=== PATIENT | female | born 1950 | race Caucasian/White ===

== ENCOUNTER → 2019-05-09 09:46 | Outpatient (BNVA) | payer MEDICARE, OTHER, SELFPAY | PROVIDERS: Family Provider Internal Medicine; PCP Internal Medicine; Visit Provider Psychiatry & Neurology Psychiatry | DX: F41.1 Generalized anxiety disorder (principal) | CPT/HCPCS: 99213 ==

== ENCOUNTER → 2019-06-06 15:00 | Outpatient (BNVA) | payer MEDICARE, OTHER, SELFPAY | PROVIDERS: Family Provider Internal Medicine; PCP Internal Medicine; Visit Provider Psychiatry & Neurology Psychiatry | DX: F32.9 Major depressive disorder, single episode, unspecified (principal); F41.1 Generalized anxiety disorder | CPT/HCPCS: 99213 ==

== ENCOUNTER → 2019-06-13 13:49 | Outpatient (BNVA) | payer MEDICARE, OTHER, SELFPAY | PROVIDERS: Family Provider Internal Medicine; PCP Internal Medicine; Visit Provider Social Worker | DX: F41.1 Generalized anxiety disorder (principal); F33.0 Major depressive disorder, recurrent, mild; F90.0 Attention-deficit hyperactivity disorder, predominantly inattentive type | CPT/HCPCS: 90834 ==

== ENCOUNTER → 2019-07-11 13:46 | Outpatient (BNVA) | payer MEDICARE, OTHER, SELFPAY | PROVIDERS: Family Provider Internal Medicine; PCP Internal Medicine; Visit Provider Social Worker | DX: F31.11 Bipolar disorder, current episode manic without psychotic features, mild (principal) | CPT/HCPCS: 90834 ==

== ENCOUNTER → 2019-08-15 08:28 | Outpatient (BNVA) | payer MEDICARE, OTHER, SELFPAY | PROVIDERS: Family Provider Internal Medicine; PCP Internal Medicine; Visit Provider Social Worker | DX: F41.1 Generalized anxiety disorder (principal); F32.9 Major depressive disorder, single episode, unspecified | CPT/HCPCS: 90834 ==

== ENCOUNTER → 2019-09-04 08:17 | Outpatient (BNVA) | payer MEDICARE, OTHER, SELFPAY | PROVIDERS: Family Provider Internal Medicine; PCP Internal Medicine; Visit Provider Psychiatry & Neurology Psychiatry | DX: F32.9 Major depressive disorder, single episode, unspecified (principal); F41.1 Generalized anxiety disorder | CPT/HCPCS: 99213 ==

== ENCOUNTER → 2019-09-10 08:19 | Outpatient (BNVA) | payer MEDICARE, OTHER, SELFPAY | PROVIDERS: Family Provider Internal Medicine; PCP Internal Medicine; Visit Provider Social Worker | DX: F32.9 Major depressive disorder, single episode, unspecified (principal); F41.1 Generalized anxiety disorder | CPT/HCPCS: 90834 ==

== ENCOUNTER → 2019-10-10 08:25 | Outpatient (BNVA) | payer MEDICARE, OTHER, SELFPAY | PROVIDERS: Family Provider Internal Medicine; PCP Internal Medicine; Visit Provider Social Worker | DX: F41.1 Generalized anxiety disorder (principal); F31.11 Bipolar disorder, current episode manic without psychotic features, mild; F90.2 Attention-deficit hyperactivity disorder, combined type | CPT/HCPCS: 90832 ==

== ENCOUNTER → 2019-12-04 09:37 | Outpatient (BNVA) | payer MEDICARE, OTHER, SELFPAY | PROVIDERS: Family Provider Internal Medicine; PCP Internal Medicine; Visit Provider Psychiatry & Neurology Psychiatry | DX: F32.9 Major depressive disorder, single episode, unspecified (principal); F41.1 Generalized anxiety disorder | CPT/HCPCS: 99213 ==

== ENCOUNTER → 2020-03-04 09:13 | Outpatient (BNVA) | payer MEDICARE, OTHER, SELFPAY | PROVIDERS: Family Provider Internal Medicine; PCP Internal Medicine; Visit Provider Psychiatry & Neurology Psychiatry | DX: F32.9 Major depressive disorder, single episode, unspecified (principal); F41.1 Generalized anxiety disorder; G47.33 Obstructive sleep apnea (adult) (pediatric) | CPT/HCPCS: 99213 ==

== ENCOUNTER → 2020-03-18 07:45 | Outpatient (BNVA) | payer MEDICARE, OTHER, SELFPAY | PROVIDERS: Family Provider Internal Medicine; PCP Internal Medicine; Visit Provider Psychiatry & Neurology Psychiatry | DX: F32.9 Major depressive disorder, single episode, unspecified (principal); F41.1 Generalized anxiety disorder | CPT/HCPCS: 99214 ==

== ENCOUNTER → 2020-04-08 07:26 | Outpatient (BNVA) | payer MEDICARE, OTHER, SELFPAY | PROVIDERS: Family Provider Internal Medicine; PCP Internal Medicine; Visit Provider Psychiatry & Neurology Psychiatry | DX: F41.1 Generalized anxiety disorder (principal); G47.33 Obstructive sleep apnea (adult) (pediatric); F32.9 Major depressive disorder, single episode, unspecified | CPT/HCPCS: 99213 ==

== ENCOUNTER 2020-04-23 16:51 | Emergency (ER) | payer MEDICARE, OTHER, SELFPAY ==
[2020-04-23] VITALS (8 sets, daily range): BP systolic 117–170; BP diastolic 61–78; PULSE 66–94; RESP 16–22; TEMP 36.4; O2SAT 93–98; BMI 34.0
--- NOTE | 2020-04-23 17:27 | XRR_ITS ---
PROCEDURE INFORMATION: Exam: XR Chest, 1 View Exam date and time: 04/23/2020 5:45 PM Age: 69 years old Clinical indication: Pain; Chest pressure; Additional info: Chest pain TECHNIQUE: Imaging protocol: XR of the chest Views: 1 view. Total images: 1 COMPARISON: CR Chest 1 [place] [id number] 11/18/2017 10:31 PM FINDINGS: Lungs: Unremarkable. No consolidation. Pleural space: Unremarkable. No pleural effusion. No pneumothorax. Heart/Mediastinum: Unremarkable. No cardiomegaly. Bones/joints: Unremarkable. XR/XR chest 1V portable [id number] IMPRESSION: No acute findings.
[2020-04-23] MEDS: nitroglycerin 0.4 mg sublingual Tablet SUBLINGUAL (17:45)
[2020-04-23] MEDS: aspirin 81 mg Chew Tablet 243 MG PO (17:45)
--- NOTE | 2020-04-23 17:50 | ED_ITS ---
Documented by User: Zuhair Ahumada MD 04/23/20 17:54 HPI - Chest Pain General: Chief Complaint: Chest Pain Stated Complaint: chest tightness, cough, sweating Time Seen by Provider: 04/23/20 17:25 History of Present Illness: HPI narrative: The patient is a 69-year-old female with past medical history myocardial infarction x2 not compliant with follow-up who comes to the ER complaining of midsternal chest pain while she was cleaning her daughter's house. The episode lasted about 90 seconds and it was midsternal. The pain was similar to her previous myocardial infarction however did resolve spontaneously. She comes to the ER for further evaluation. MD complaint: chest pain and chest heaviness Pertinent past history: coronary artery disease and prior OR Onset (ago): hour(s) (1) Timing of current episode: now resolved Onset: during exertion Pain location: substernal Pain radiation: none Severity: similar to previous episodes Quality: sharp and similar to prior OR Exacerbating factors: exertion [facility] ED PFSH: Medical History (Updated 04/24/20 @ 00:14 by Roxy Jean MD) ASHD (arteriosclerotic heart disease) Cardiomyopathy Diabetes Generalized anxiety disorder Hypertension Hypothyroid MDD (major depressive disorder) SANTIAGO (obstructive sleep apnea) Surgical History H/O hysterectomy with oophorectomy S/P cholecystectomy Family History Other Cancer Diabetes Hypertension Social History Smoking and tobacco status: never smoked Alcohol intake: never Course Vital Signs: Vital signs: Vital Signs Temperature 97.6 F 04/23/20 16:59 Pulse Rate 74 04/24/20 00:24 Respiratory Rate 17 04/24/20 00:24 Blood Pressure 140/87 04/24/20 00:24 Pulse Oximetry 94 04/24/20 00:24 MDM - Chest Pain Lab Data: Labs: Lab Results 04/23/20 04/23/20 04/23/20 Range/Units 17:53 17:53 17:53 WBC 7.1 (4.0-10.0) 10^3/ uL RBC 4.44 (4.1-5.3) 10^6/u L Hgb 13.1 (11.5-15.3) g/dL Hct 41.4 (37.0-47.0) % MCV 93.2 (81-99) fL MCH 29.5 (28.0-34.0) pg MCHC 31.6 (30.0-36.0) g/dL RDW 12.7 (12.1-15.1) % Plt Count 215 (130-400) 10^3/c mm MPV 9.7 (7.4-10.4) fL Neut % (Auto) 75.0 % Lymph % (Auto) 14.6 % [place] % (Auto) 7.5 % Eos % (Auto) 2.4 % Baso % (Auto) 0.1 % Neut # (Auto) 5.29 (1.8-7.7) 10^3/u L Lymph # (Auto) 1.0 (0.8-4.8) 10^3/u L [place] # (Auto) 0.5 (0.2-0.9) 10^3/u L Eos # (Auto) 0.2 (0.0-0.8) 10^3/u L Baso # (Auto) 0.0 (0.0-0.1) 10^3/u L Nucleated RBC % (a uto) 0 % Nucleated RBCs # 0.0 /100WBC D-Dimer 1.51 H (0-0.59) ug/mIFE U Sodium Cancelled Potassium Cancelled Chloride Cancelled Carbon Dioxide Cancelled Anion Gap Cancelled BUN Cancelled Creatinine Cancelled GFR Calculation Cancelled Glucose Cancelled Calculated Osmolal ity Cancelled Calcium Cancelled Total Bilirubin Cancelled AST Cancelled ALT Cancelled Alkaline Phosphata se Cancelled Troponin T Baselin e (0-10) ng/L Troponin T 120 [place] (0-10) ng/L Delta Troponin T (0-10) ABS# Troponin T Hi Sens 6Hr (0-10) ng/L Troponin T Hi Sens 6Hr Delta (0-12) ng/L NT-Pro-B Natriuret Pep Cancelled Total Protein Cancelled Albumin Cancelled Globulin Cancelled Urine Color (Yellow) Urine Appearance (CLEAR) Urine pH (5-7) Ur Specific Gravit y (1.005-1.030) Urine Protein (Negative) Urine Glucose (UA) (Normal) Urine Ketones (Negative) Urine Blood (Negative) Urine Nitrate (Negative) Urine Bilirubin (Negative) Urine Urobilinogen (Negative) mg/dL Ur Leukocyte Ashli ase (Negative) Urine RBC (0-2) /hpf Urine WBC (0-5) /hpf Ur Squamous Epith Cells (0-5) /hpf Amorphous Sediment Urine Bacteria (NONE) /hpf 04/23/20 04/23/20 04/23/20 Range/Units 17:53 18:25 18:31 WBC (4.0-10.0) 10^3/ uL RBC (4.1-5.3) 10^6/u L Hgb (11.5-15.3) g/dL Hct (37.0-47.0) % MCV (81-99) fL MCH (28.0-34.0) pg MCHC (30.0-36.0) g/dL RDW (12.1-15.1) % Plt Count (130-400) 10^3/c mm MPV (7.4-10.4) fL Neut % (Auto) % Lymph % (Auto) % [place] % (Auto) % Eos % (Auto) % Baso % (Auto) % Neut # (Auto) (1.8-7.7) 10^3/u L Lymph # (Auto) (0.8-4.8) 10^3/u L [place] # (Auto) (0.2-0.9) 10^3/u L Eos # (Auto) (0.0-0.8) 10^3/u L Baso # (Auto) (0.0-0.1) 10^3/u L Nucleated RBC % (a uto) % Nucleated RBCs # /100WBC D-Dimer (0-0.59) ug/mIFE U Sodium Potassium Chloride Carbon Dioxide Anion Gap BUN Creatinine GFR Calculation Glucose Calculated Osmolal ity Calcium Total Bilirubin AST ALT Alkaline Phosphata se Troponin T Baselin e 11 H (0-10) ng/L Troponin T 120 [place] 10.46 H (0-10) ng/L Delta Troponin T -0.54 L (0-10) ABS# Troponin T Hi Sens 6Hr (0-10) ng/L Troponin T Hi Sens 6Hr Delta (0-12) ng/L NT-Pro-B Natriuret Pep Total Protein Albumin Globulin Urine Color Yellow (Yellow) Urine Appearance Clear (CLEAR) Urine pH 5 (5-7) Ur Specific Gravit y 1.020 (1.005-1.030) Urine Protein Neg (Negative) Urine Glucose (UA) Norm (Normal) Urine Ketones Negative (Negative) Urine Blood Neg (Negative) Urine Nitrate Positive H (Negative) Urine Bilirubin Neg (Negative) Urine Urobilinogen Norm (Negative) mg/dL Ur Leukocyte Ashli ase 2+ H (Negative) Urine RBC 0-4 H (0-2) /hpf Urine WBC 25-40 H (0-5) /hpf Ur Squamous Epith Cells 0-4 H (0-5) /hpf Amorphous Sediment Not Reportable Urine Bacteria 3+ H (NONE) /hpf 04/23/20 04/23/20 Range/Units 18:31 23:42 WBC (4.0-10.0) 10^3/ uL RBC (4.1-5.3) 10^6/u L Hgb (11.5-15.3) g/dL Hct (37.0-47.0) % MCV (81-99) fL MCH (28.0-34.0) pg MCHC (30.0-36.0) g/dL RDW (12.1-15.1) % Plt Count (130-400) 10^3/c mm MPV (7.4-10.4) fL Neut % (Auto) % Lymph % (Auto) % [place] % (Auto) % Eos % (Auto) % Baso % (Auto) % Neut # (Auto) (1.8-7.7) 10^3/u L Lymph # (Auto) (0.8-4.8) 10^3/u L [place] # (Auto) (0.2-0.9) 10^3/u L Eos # (Auto) (0.0-0.8) 10^3/u L Baso # (Auto) (0.0-0.1) 10^3/u L Nucleated RBC % (a uto) % Nucleated RBCs # /100WBC D-Dimer (0-0.59) ug/mIFE U Sodium 140 Potassium 4.1 Chloride 105 Carbon Dioxide 26 Anion Gap 13.1 BUN 19 Creatinine 0.7 GFR Calculation 83.0 L Glucose 152 H Calculated Osmolal ity 295 Calcium 9.3 Total Bilirubin 0.2 AST 23 ALT 22 Alkaline Phosphata se 109 H Troponin T Baselin e (0-10) ng/L Troponin T 120 [place] (0-10) ng/L Delta Troponin T (0-10) ABS# Troponin T Hi Sens 6Hr 12.96 H (0-10) ng/L Troponin T Hi Sens 6Hr Delta 1.96 (0-12) ng/L NT-Pro-B Natriuret Pep 413 H Total Protein 6.6 Albumin 4.0 Globulin 2.6 Urine Color (Yellow) Urine Appearance (CLEAR) Urine pH (5-7) Ur Specific Gravit y (1.005-1.030) Urine Protein (Negative) Urine Glucose (UA) (Normal) Urine Ketones (Negative) Urine Blood (Negative) Urine Nitrate (Negative) Urine Bilirubin (Negative) Urine Urobilinogen (Negative) mg/dL Ur Leukocyte Ashli ase (Negative) Urine RBC (0-2) /hpf Urine WBC (0-5) /hpf Ur Squamous Epith Cells (0-5) /hpf Amorphous Sediment Urine Bacteria (NONE) /hpf Discharge Plan Discharge Patient Disposition: Home Clinical Impression: Chest pain Qualifiers: Chest pain type: unspecified Qualified Code(s): R07.9 - Chest pain, unspecified Condition: Stable Prescriptions: No Action mecobalamin (vitamin B12) 1,000 mcg tablet,chewable 1,000 mcg PO DAILY RF: 0 garlic 1,000 mg capsule 1,000 mg PO DAILY RF: 0 ferrous gluconate [Ferate] 240 mg (27 mg iron) tablet 240 mg PO DAILY RF: 0 losartan 25 mg tablet 25 mg PO DAILY 90 Days Qty: 90 RF: 3 sertraline [Zoloft] 100 mg tablet 200 mg PO DAILY Qty: 180 RF: 1 trazodone 50 mg tablet 75 mg PO DAILY Qty: 90 RF: 5 buspirone 10 mg tablet 20 mg PO BID Qty: 360 RF: 1 Healthy Eyes Lutein-Zeaxanthin 60 mg-13.5 mg- 15 mg-2 mg-6 mg capsule 1 cap PO QAM RF: 0 cholecalciferol (vitamin D3) 50 mcg (2,000 unit) tablet 2,000 unit PO DAILY RF: 0 levothyroxine 50 mcg capsule 50 mcg PO DAILY RF: 0 metformin 500 mg tablet 500 mg PO DAILY RF: 0 omega-3 fatty acids [Fish Oil Concentrate] 1,000 mg capsule 1,000 mg PO DAILY RF: 0 atorvastatin 40 mg tablet 40 mg PO DAILY RF: 0 aspirin [Aspir-81] 81 mg tablet,delayed release (DR/EC) 81 mg PO DAILY RF: 0 Farxiga 10 mg tablet 10 mg PO DAILY Qty: 90 RF: 0 Discharge Orders: Discharge ED (Routine); Ordered 04/24/20 Ordered By: Roxy Jean Referrals: Andrey Soto DO [Primary Care Provider] - Discharge Diet: Advance as tolerated Discharge Activity: Resume usual activity Patient Instructions: Chest Pain (ED) Coding Level of Care Code ED Professional Athlete for Chg Fwd Exam Comprehensive Documented by User: Roxy Jean MD 04/24/20 00:26 HPI - Chest Pain General: Chief Complaint: Chest Pain Stated Complaint: chest tightness, cough, sweating Time Seen by Provider: 04/23/20 17:25 History of Present Illness: Associated symptoms: Deny abdominal pain, dyspnea, fever(s), nausea or vomiting Review of Systems Const: Denies: fever(s), chills, body aches or change in appetite Eyes: Denies: blurry vision or eye discomfort ENMT: Denies: throat pain or dental pain Card: Denies: chest pain Resp: Denies: dyspnea GI: Denies: abdominal pain, nausea, vomiting or diarrhea : Denies: dysuria Musc: Denies: neck pain or back pain Skin/Breast: Denies: rash Neuro: Denies: headache(s) Psych: Denies: depression Jerman/Lymph: Denies: easy bruising All/Imm: Denies: urticaria PFSH ED PFSH: Medical History (Updated 04/24/20 @ 00:14 by Roxy Jean MD) ASHD (arteriosclerotic heart disease) Cardiomyopathy Diabetes Generalized anxiety disorder Hypertension Hypothyroid MDD (major depressive disorder) SANTIAGO (obstructive sleep apnea) Surgical History H/O hysterectomy with oophorectomy S/P cholecystectomy Family History Other Cancer Diabetes Hypertension Social History Smoking and tobacco status: never smoked Alcohol intake: never Physical Exam Const: COMMON NORMALS: no acute distress, patient oriented x3 and healthy appe aring HENMT: COMMON NORMALS: normocephalic and atraumatic HEAD & SCALP: normocephalic and atraumatic Eye: COMMON NORMALS: Equal, round and reactive pupils present and EOMs intact bilaterally PUPIL: Yes Equal, round and reactive pupils present Neck/C-Spine: COMMON NORMALS: full ROM and supple Chest: COMMONS NORMALS: normal inspection of the chest and normal palpation of entire chest wall Resp: COMMON NORMALS: normal respiratory effort, No retractions, No use of accessory muscles and clear to auscultation bilaterally AUSCULTATION: clear to auscultation bilaterally Cardio: COMMON NORMALS: regular rate, regular rhythm and No murmurs present (Cardio) RATE: regular rate RHYTHM: regular rhythm GI: COMMON NORMALS: Normal to inspection, nondistended, normoactive bowel sounds present, Soft to palpation, non-tender and no masses PALPATION: Yes Soft to palpation Extremity: COMMON NORMALS: normal to inspection and full ROM Neuro: COMMON NORMALS: patient oriented x3, moves all extremities and no focal motor deficits Psych: COMMON NORMALS: mental status grossly normal, Normal thought process present and cooperative THOUGHT PROCESS: Normal thought process present Skin: COMMON NORMALS: no rashes or lesions noted and no wounds GENERAL SKIN EXAM: no rashes or lesions noted Course Vital Signs: Vital signs: Vital Signs Temperature 97.6 F 04/23/20 16:59 Pulse Rate 74 04/24/20 00:24 Respiratory Rate 17 04/24/20 00:24 Blood Pressure 140/87 04/24/20 00:24 Pulse Oximetry 94 04/24/20 00:24 MDM - Chest Pain MDM Narrative: Medical decision making narrative: Irina presents here with chest pain. Patient's 2-hour and 6-hour troponin are negative. Patient is well-appearing here and states she feels improved. She is stable for discharge and is to follow-up with PCP and return if worsening. She understands agrees to plan. Lab Data: Labs: Lab Results 04/23/20 04/23/20 04/23/20 Range/Units 17:53 17:53 17:53 WBC 7.1 (4.0-10.0) 10^3/ uL RBC 4.44 (4.1-5.3) 10^6/u L Hgb 13.1 (11.5-15.3) g/dL Hct 41.4 (37.0-47.0) % MCV 93.2 (81-99) fL MCH 29.5 (28.0-34.0) pg MCHC 31.6 (30.0-36.0) g/dL RDW 12.7 (12.1-15.1) % Plt Count 215 (130-400) 10^3/c mm MPV 9.7 (7.4-10.4) fL Neut % (Auto) 75.0 % Lymph % (Auto) 14.6 % [place] % (Auto) 7.5 % Eos % (Auto) 2.4 % Baso % (Auto) 0.1 % Neut # (Auto) 5.29 (1.8-7.7) 10^3/u L Lymph # (Auto) 1.0 (0.8-4.8) 10^3/u L [place] # (Auto) 0.5 (0.2-0.9) 10^3/u L Eos # (Auto) 0.2 (0.0-0.8) 10^3/u L Baso # (Auto) 0.0 (0.0-0.1) 10^3/u L Nucleated RBC % (a uto) 0 % Nucleated RBCs # 0.0 /100WBC D-Dimer 1.51 H (0-0.59) ug/mIFE U Sodium Cancelled Potassium Cancelled Chloride Cancelled Carbon Dioxide Cancelled Anion Gap Cancelled BUN Cancelled Creatinine Cancelled GFR Calculation Cancelled Glucose Cancelled Calculated Osmolal ity Cancelled Calcium Cancelled Total Bilirubin Cancelled AST Cancelled ALT Cancelled Alkaline Phosphata se Cancelled Troponin T Baselin e (0-10) ng/L Troponin T 120 [place] (0-10) ng/L Delta Troponin T (0-10) ABS# Troponin T Hi Sens 6Hr (0-10) ng/L Troponin T Hi Sens 6Hr Delta (0-12) ng/L NT-Pro-B Natriuret Pep Cancelled Total Protein Cancelled Albumin Cancelled Globulin Cancelled Urine Color (Yellow) Urine Appearance (CLEAR) Urine pH (5-7) Ur Specific Gravit y (1.005-1.030) Urine Protein (Negative) Urine Glucose (UA) (Normal) Urine Ketones (Negative) Urine Blood (Negative) Urine Nitrate (Negative) Urine Bilirubin (Negative) Urine Urobilinogen (Negative) mg/dL Ur Leukocyte Ashli ase (Negative) Urine RBC (0-2) /hpf Urine WBC (0-5) /hpf Ur Squamous Epith Cells (0-5) /hpf Amorphous Sediment Urine Bacteria (NONE) /hpf 04/23/20 04/23/20 04/23/20 Range/Units 17:53 18:25 18:31 WBC (4.0-10.0) 10^3/ uL RBC (4.1-5.3) 10^6/u L Hgb (11.5-15.3) g/dL Hct (37.0-47.0) % MCV (81-99) fL MCH (28.0-34.0) pg MCHC (30.0-36.0) g/dL RDW (12.1-15.1) % Plt Count (130-400) 10^3/c mm MPV (7.4-10.4) fL Neut % (Auto) % Lymph % (Auto) % [place] % (Auto) % Eos % (Auto) % Baso % (Auto) % Neut # (Auto) (1.8-7.7) 10^3/u L Lymph # (Auto) (0.8-4.8) 10^3/u L [place] # (Auto) (0.2-0.9) 10^3/u L Eos # (Auto) (0.0-0.8) 10^3/u L Baso # (Auto) (0.0-0.1) 10^3/u L Nucleated RBC % (a uto) % Nucleated RBCs # /100WBC D-Dimer (0-0.59) ug/mIFE U Sodium Potassium Chloride Carbon Dioxide Anion Gap BUN Creatinine GFR Calculation Glucose Calculated Osmolal ity Calcium Total Bilirubin AST ALT Alkaline Phosphata se Troponin T Baselin e 11 H (0-10) ng/L Troponin T 120 [place] 10.46 H (0-10) ng/L Delta Troponin T -0.54 L (0-10) ABS# Troponin T Hi Sens 6Hr (0-10) ng/L Troponin T Hi Sens 6Hr Delta (0-12) ng/L NT-Pro-B Natriuret Pep Total Protein Albumin Globulin Urine Color Yellow (Yellow) Urine Appearance Clear (CLEAR) Urine pH 5 (5-7) Ur Specific Gravit y 1.020 (1.005-1.030) Urine Protein Neg (Negative) Urine Glucose (UA) Norm (Normal) Urine Ketones Negative (Negative) Urine Blood Neg (Negative) Urine Nitrate Positive H (Negative) Urine Bilirubin Neg (Negative) Urine Urobilinogen Norm (Negative) mg/dL Ur Leukocyte Ashli ase 2+ H (Negative) Urine RBC 0-4 H (0-2) /hpf Urine WBC 25-40 H (0-5) /hpf Ur Squamous Epith Cells 0-4 H (0-5) /hpf Amorphous Sediment Not Reportable Urine Bacteria 3+ H (NONE) /hpf 04/23/20 04/23/20 Range/Units 18:31 23:42 WBC (4.0-10.0) 10^3/ uL RBC (4.1-5.3) 10^6/u L Hgb (11.5-15.3) g/dL Hct (37.0-47.0) % MCV (81-99) fL MCH (28.0-34.0) pg MCHC (30.0-36.0) g/dL RDW (12.1-15.1) % Plt Count (130-400) 10^3/c mm MPV (7.4-10.4) fL Neut % (Auto) % Lymph % (Auto) % [place] % (Auto) % Eos % (Auto) % Baso % (Auto) % Neut # (Auto) (1.8-7.7) 10^3/u L Lymph # (Auto) (0.8-4.8) 10^3/u L [place] # (Auto) (0.2-0.9) 10^3/u L Eos # (Auto) (0.0-0.8) 10^3/u L Baso # (Auto) (0.0-0.1) 10^3/u L Nucleated RBC % (a uto) % Nucleated RBCs # /100WBC D-Dimer (0-0.59) ug/mIFE U Sodium 140 Potassium 4.1 Chloride 105 Carbon Dioxide 26 Anion Gap 13.1 BUN 19 Creatinine 0.7 GFR Calculation 83.0 L Glucose 152 H Calculated Osmolal ity 295 Calcium 9.3 Total Bilirubin 0.2 AST 23 ALT 22 Alkaline Phosphata se 109 H Troponin T Baselin e (0-10) ng/L Troponin T 120 [place] (0-10) ng/L Delta Troponin T (0-10) ABS# Troponin T Hi Sens 6Hr 12.96 H (0-10) ng/L Troponin T Hi Sens 6Hr Delta 1.96 (0-12) ng/L NT-Pro-B Natriuret Pep 413 H Total Protein 6.6 Albumin 4.0 Globulin 2.6 Urine Color (Yellow) Urine Appearance (CLEAR) Urine pH (5-7) Ur Specific Gravit y (1.005-1.030) Urine Protein (Negative) Urine Glucose (UA) (Normal) Urine Ketones (Negative) Urine Blood (Negative) Urine Nitrate (Negative) Urine Bilirubin (Negative) Urine Urobilinogen (Negative) mg/dL Ur Leukocyte Ashli ase (Negative) Urine RBC (0-2) /hpf Urine WBC (0-5) /hpf Ur Squamous Epith Cells (0-5) /hpf Amorphous Sediment Urine Bacteria (NONE) /hpf Discharge Plan Discharge Patient Disposition: Home Clinical Impression: Chest pain Qualifiers: Chest pain type: unspecified Qualified Code(s): R07.9 - Chest pain, unspecified Condition: Stable Prescriptions: No Action mecobalamin (vitamin B12) 1,000 mcg tablet,chewable 1,000 mcg PO DAILY RF: 0 garlic 1,000 mg capsule 1,000 mg PO DAILY RF: 0 ferrous gluconate [Ferate] 240 mg (27 mg iron) tablet 240 mg PO DAILY RF: 0 losartan 25 mg tablet 25 mg PO DAILY 90 Days Qty: 90 RF: 3 sertraline [Zoloft] 100 mg tablet 200 mg PO DAILY Qty: 180 RF: 1 trazodone 50 mg tablet 75 mg PO DAILY Qty: 90 RF: 5 buspirone 10 mg tablet 20 mg PO BID Qty: 360 RF: 1 Healthy Eyes Lutein-Zeaxanthin 60 mg-13.5 mg- 15 mg-2 mg-6 mg capsule 1 cap PO QAM RF: 0 cholecalciferol (vitamin D3) 50 mcg (2,000 unit) tablet 2,000 unit PO DAILY RF: 0 levothyroxine 50 mcg capsule 50 mcg PO DAILY RF: 0 metformin 500 mg tablet 500 mg PO DAILY RF: 0 omega-3 fatty acids [Fish Oil Concentrate] 1,000 mg capsule 1,000 mg PO DAILY RF: 0 atorvastatin 40 mg tablet 40 mg PO DAILY RF: 0 aspirin [Aspir-81] 81 mg tablet,delayed release (DR/EC) 81 mg PO DAILY RF: 0 Farxiga 10 mg tablet 10 mg PO DAILY Qty: 90 RF: 0 Discharge Orders: Discharge ED (Routine); Ordered 04/24/20 Ordered By: Roxy Jean Referrals: Andrey Soto DO [Primary Care Provider] - Discharge Diet: Advance as tolerated Discharge Activity: Resume usual activity Patient Instructions: Chest Pain (ED) Coding Level of Care Code ED Professional Athlete for Yarelisg Fwd Exam Comprehensive
[2020-04-23 18:01] LABS: Basophils % 0.1 %; Eosinophils # 0.2 10^3/uL (0.0-0.8); Eosinophils % 2.4 %; Hematocrit 41.4 % (37.0-47.0); Hemoglobin 13.1 g/dL (11.5-15.3); Lymphocytes % 14.6 %; Mean Corpuscular HGB Conc 31.6 g/dL (30.0-36.0); Mean Corpuscular Hemoglobin 29.5 pg (28.0-34.0); Mean Corpuscular Volume 93.2 fL (81-99); Mean Platelet Volume 9.7 fL (7.4-10.4); Monocytes # 0.5 10^3/uL (0.2-0.9); Monocytes % 7.5 %; Neutrophils # 5.29 10^3/uL (1.8-7.7); Nucleated Red Blood Cells % 0 %; Platelet Count 215 10^3/cmm (130-400); Red Blood Count 4.44 10^6/uL (4.1-5.3); Red Cell Distribution Width 12.7 % (12.1-15.1); White Blood Count 7.1 10^3/uL (4.0-10.0)
[2020-04-23 18:21] LABS: Troponin(5th) Baseline 11 ng/L (0-10)
[2020-04-23 18:36] LABS: D Dimer 1.51 ug/mIFEU (0-0.59)
--- NOTE | 2020-04-23 18:43 | CTR_ITS ---
PROCEDURE INFORMATION: Exam: CT Angiography Chest With Contrast Exam date and time: 04/23/2020 7:15 PM Age: 69 years old Clinical indication: Sternal or substernal pain; Patient HX: C/O mid sternal cp w elev d-dimer; Additional info: Chest pain, elevated d dimer TECHNIQUE: Imaging protocol: Computed tomographic angiography of the chest with intravenous contrast. 3D rendering (Not supervised by radiologist): MIP and/or 3D reconstructed images were created by the technologist. Total images: 755 Radiation optimization: All CT scans at this facility use at least one of these dose optimization techniques: automated exposure control; mA and/or kV adjustment per patient size (includes targeted exams where dose is matched to clinical indication); or iterative reconstruction. Contrast material: OMNI 350; Contrast volume: 65 ml; Contrast route: INTRAVENOUS (IV); COMPARISON: CR XR chest 1V portable [id number] 04/23/2020 5:28 PM RADIATION DOSE METRICS: Total DLP (mGy-cm): 489.22 FINDINGS: Pulmonary arteries: No visible evidence of pulmonary embolism/pulmonary arterial thrombus. Aorta: The thoracic aorta is nonaneurysmal. No visible intimal flap or dissection. Mild arterial sclerotic disease. Lungs: Very minimal discoid atelectasis right lower lobe and anterior segment left lower lobe. No other evidence of active interstitial or alveolar airspace disease. Rare calcified granuloma of antecedent disease. Pleural space: Unremarkable. No pneumothorax. No pleural effusion. Heart: Unremarkable. No cardiomegaly. No pericardial effusion. Lymph nodes: Marginally prominent mediastinal and hilar lymph nodes. Prominent pretracheal lymph node measures 13 mm in the short axis. Calcified hilar complexes of antecedent granulomatous disease. Gallbladder and bile ducts: Status post cholecystectomy. Bones/joints: Mild scoliotic curvature of the spine. Degenerative disease and degenerative disc disease of the spine. Osteopenia. Soft tissues: Obesity. CT/CT angio chest PE protcl [id number] IMPRESSION: 1. No visible evidence of pulmonary embolism/pulmonary arterial thrombus. 2. Very minimal discoid atelectasis. 3. Antecedent granulomatous disease. 4. Marginally prominent mediastinal and hilar lymph nodes. Radiation Dose CTDIVOL = (mGy): DLP = 489.22 (mGy-cm)
[2020-04-23 18:55] LABS: Troponin 5 2HR 10.46 ng/L (0-10)
[2020-04-23 19:03] LABS: Alanine Aminotransferase 22 U/L (0-33); Alkaline Phosphatase 109 IU/L (35-105); Anion Gap 13.1 (5-19); Aspartate Amino Transferase 23 U/L (0-32); Blood Urea Nitrogen 19 mg/dL (8-23); Calcium 9.3 mg/dL (8.5-10.5); Carbon Dioxide 26 mmol/L (22-29); Chloride 105 mmol/L (98-107); Globulin 2.6 g/dL (1.3-4.6); Glucose 152 mg/dL (65-115); NT Pro B Type Natriuretic Pept 413 pg/mL (0-125); Osmolality Calculated 295 mOsm/kg (285-295); Potassium 4.1 mmol/L (3.5-5.1); Sodium 140 mmol/L (136-145); Total Bilirubin 0.2 mg/dL (0.15-1.2); Total Protein 6.6 g/dL (6.6-8.7)
[2020-04-23 19:04] LABS: Add Urine Microscopic? YES; Bilirubin Urine Neg (Negative); Blood Urine Neg (Negative); Glucose Urine UA Norm (Normal); Ketones Urine Negative (Negative); Leukocyte Esterase Urine 2+ (Negative); Nitrate Urine Positive (Negative); Protein Urine Neg (Negative); Urine Appearance Clear (CLEAR); Urine Color Yellow (Yellow); Urobilinogen Urine Norm (Negative); pH Urine 5 (5-7)
[2020-04-23 19:06] LABS: Add Urine Culture? Yes; Bacteria Urine 3+ /hpf; RBC Urine 0-4 /hpf (0-2); Squamous Epithelial Cell Urine 0-4 /hpf (0-5); WBC Urine 25-40 /hpf (0-5)
[2020-04-23 19:11] LABS: Troponin 5 2HR Delta -0.54 ABS# (0-10)
--- NOTE | 2020-04-23 19:27 | ECG_ITS ---
[facility] Test Date: 2020-04-23 Pat Name: Irina Moscoso Department: Room: Gender: Female Bean Sorter: : 1950 Requested By: Zuhair Ahumada Order Number: [id number] Thomas MD: Shi Duncan M.D. Measurements Intervals [place] Rate: 75 P: 31 MI: 136 QRS: 21 QRSD: 106 T: 75 QT: 400 QTc: 448 Interpretive Statements SINUS RHYTHM POSSIBLE RIGHT VENTRICULAR CONDUCTION DELAY [RSR (QR) IN V1/V2] ANTEROLATERAL MYOCARDIAL INFARCTION , OF INDETERMINATE AGE [40+ ms Q WAVE IN I/aVL/V3-V6] Compared to ECG 12/18/2017 10:14:05 Sinus bradycardia no longer present Myocardial infarct finding still present Electronically Signed On 04-26-2020 10:03:34 PROJECTOR BOOTH OPERATOR by Shi Duncan M.D. [id number]
--- NOTE | 2020-04-23 19:27 | PC.NURSE ---
EKG done at 1927 and shown to ER doctor
[2020-04-23] MEDS: iohexol 350 mg/mL 100 mL Btl 65 ML IV (19:33)
[2020-04-23] MEDS: nitrofurantoin SR (BID) 100 mg Capsule PO (20:26)
--- NOTE | 2020-04-23 23:27 | ECG_ITS ---
[facility] Test Date: 2020-04-23 Pat Name: Irina Moscoso Department: Room: Gender: Female Coin Machine Supervisor: : 1950 Requested By: Zuhair Ahumada Order Number: [id number] Thomas MD: Shi Duncan M.D. Measurements Intervals [place] Rate: 73 P: 31 AK: 143 QRS: 17 QRSD: 109 T: 72 QT: 426 QTc: 472 Interpretive Statements SINUS RHYTHM POSSIBLE RIGHT VENTRICULAR CONDUCTION DELAY [RSR (QR) IN V1/V2] ANTEROLATERAL MYOCARDIAL INFARCTION , PROBABLY OLD [40+ ms Q WAVE IN I/aVL/V3-V6] Compared to ECG 04/23/2020 19:24:19 No significant changes Electronically Signed On 04-26-2020 10:01:56 BOARD DESIGN ENGINEER by Shi Duncan M.D. [id number]
--- NOTE | 2020-04-23 23:54 | PC.NURSE ---
EKG done at 2343 and shown to ER doctor
[2020-04-24 00:10] LABS: Troponin 5 6HR 12.96 ng/L (0-10); Troponin 5 6HR Delta 1.96 ng/L (0-12)
[2020-04-24 00:24] VITALS: BP 140/87; PULSE 74; RESP 17; O2SAT 94
--- NOTE | 2020-04-27 10:32 | DCPLANNER ---
manager discovery had message to schedule a follow up appointment for patient with [facility], cardiology. manager discovery called [facility], spoke with Angelica, a follow up appointment is scheduled for Monday, April 27, 2020 at 3:[address] Toth. manager discovery called patient and gave patient the appointment information. Patient stated that she would attend the appointment.
--- NOTE | 2020-05-20 15:08 | DCPLANNER ---
Patient had a follow up appointment scheduled for 04.27.20 with heart care - patient did attend appointment.
== END 2020-04-24 00:30 | disposition home or self-care (01) ==
PROVIDERS: Family Medicine; Emergency Provider Emergency Medicine; PCP Internal Medicine
DX: R07.9 Chest pain, unspecified (principal); Z79.82 Long term (current) use of aspirin; Z79.84 Long term (current) use of oral hypoglycemic drugs; E11.9 Type 2 diabetes mellitus without complications
CPT/HCPCS: 12345; 71045; 71275; 80053; 81001; 83880; 84484; 85025; 85378; 87077; 87086; 87186; 93005; 99283; 99284; 99291; Q9967

== ENCOUNTER → 2020-05-06 07:54 | Outpatient (BNVA) | payer MEDICARE, OTHER, SELFPAY | PROVIDERS: PCP Internal Medicine; Visit Provider Psychiatry & Neurology Psychiatry | DX: F32.9 Major depressive disorder, single episode, unspecified (principal); F41.1 Generalized anxiety disorder | CPT/HCPCS: 99214 ==

== ENCOUNTER → 2020-06-05 07:26 | Outpatient (BNVA) | payer MEDICARE, OTHER, SELFPAY | PROVIDERS: PCP Internal Medicine; Visit Provider Psychiatry & Neurology Psychiatry | DX: F32.9 Major depressive disorder, single episode, unspecified (principal); F41.1 Generalized anxiety disorder; F33.42 Major depressive disorder, recurrent, in full remission; G47.33 Obstructive sleep apnea (adult) (pediatric); G47.00 Insomnia, unspecified | CPT/HCPCS: 99214 ==

== ENCOUNTER 2020-06-08 11:54 | Outpatient (CLI) | payer MEDICARE, OTHER, SELFPAY ==
--- NOTE | 2020-06-08 11:56 | MM_ITS ---
WS: [id number] BILATERAL DIGITAL SCREENING MAMMOGRAPHY WITH CAD CLINICAL INFORMATION: SCREENING HISTORY: Screening mammogram. No current complaints. COMPARISON: TECHNIQUE: Bilateral CC and MLO views. FINDINGS: Scattered fibroglandular densities bilaterally. Slightly spiculated asymmetric density mid depth righ t breast best seen on the cc view. Recommend spot compression views and ultrasound if persistent. Punctate and vascular calcifications. Left breast is unremarkable. MM/[id number] IMPRESSION: BI-RADS: 0-Incomplete: Need additional imaging evaluation FOLLOW UP: Need Additional Imaging Recommend return to annual screening mammography.
== END 2020-06-08 11:55 | disposition home or self-care (01) ==
LOC: RADSHAW 11:55
PROVIDERS: PCP Internal Medicine; Visit Provider Internal Medicine
DX: Z12.31 Encounter for screening mammogram for malignant neoplasm of breast (principal); N64.89 Other specified disorders of breast
CPT/HCPCS: 77067

== ENCOUNTER → 2020-06-30 07:25 | Outpatient (BNVA) | payer MEDICARE, OTHER, SELFPAY | PROVIDERS: PCP Internal Medicine; Visit Provider Psychiatry & Neurology Psychiatry | DX: F33.42 Major depressive disorder, recurrent, in full remission (principal); F41.1 Generalized anxiety disorder; G47.33 Obstructive sleep apnea (adult) (pediatric); G47.00 Insomnia, unspecified; F32.5 Major depressive disorder, single episode, in full remission | CPT/HCPCS: 99214 ==

== ENCOUNTER → 2020-07-28 07:36 | Outpatient (BNVA) | payer MEDICARE, OTHER, SELFPAY | PROVIDERS: PCP Internal Medicine; Visit Provider Psychiatry & Neurology Psychiatry | DX: F41.1 Generalized anxiety disorder (principal); F32.5 Major depressive disorder, single episode, in full remission; G47.00 Insomnia, unspecified; G47.33 Obstructive sleep apnea (adult) (pediatric) | CPT/HCPCS: 99214 ==

== ENCOUNTER → 2020-08-27 09:45 | Outpatient (BNVA) | payer MEDICARE, OTHER, SELFPAY | PROVIDERS: PCP Internal Medicine; Visit Provider Psychiatry & Neurology Psychiatry | DX: F41.1 Generalized anxiety disorder (principal); G47.00 Insomnia, unspecified; F32.5 Major depressive disorder, single episode, in full remission; G47.33 Obstructive sleep apnea (adult) (pediatric) | CPT/HCPCS: 99214 ==

== ENCOUNTER 2020-09-01 10:15 | Outpatient (CLI) | payer MEDICARE, OTHER, SELFPAY ==
--- NOTE | 2020-09-01 10:24 | MM_ITS ---
WS: [id number] RIGHT DIGITAL MAMMOGRAPHY WITH CAD CLINICAL INFORMATION: ABNORMAL MAMMOGRAM RT BREAST COMPARISON: June 08, 2020 TECHNIQUE: 3 views of the right breast were obtained. FINDINGS: The right breast is composed of scattered fibroglandular densities. Previously described asymmetric d ensity mid depth right breast compresses out today on the spot compression views today consistent wit h benign overlapping breast parenchyma. No other suspicious abnormalities. Recommend return to annual screening mammography. MM/[place] [id number] IMPRESSION: BI-RADS: 2-Benign FOLLOW UP: 1 Year Follow-up Recommend return to annual screening mammography.
== END 2020-09-01 10:16 | disposition home or self-care (01) ==
LOC: RADSHAW 10:17
PROVIDERS: PCP Internal Medicine; Visit Provider Internal Medicine
DX: R92.8 Other abnormal and inconclusive findings on diagnostic imaging of breast (principal)
CPT/HCPCS: 77065

== ENCOUNTER → 2020-09-24 08:10 | Outpatient (BNVA) | payer MEDICARE, OTHER, SELFPAY | PROVIDERS: PCP Internal Medicine; Visit Provider Psychiatry & Neurology Psychiatry | DX: F32.5 Major depressive disorder, single episode, in full remission (principal); F41.1 Generalized anxiety disorder; G47.00 Insomnia, unspecified; G47.33 Obstructive sleep apnea (adult) (pediatric) | CPT/HCPCS: 99214 ==

== ENCOUNTER → 2020-12-18 08:03 | Outpatient (BNVA) | payer MEDICARE, OTHER, SELFPAY | PROVIDERS: PCP Internal Medicine; Visit Provider Psychiatry & Neurology Psychiatry | DX: F32.5 Major depressive disorder, single episode, in full remission (principal); F41.1 Generalized anxiety disorder; G47.33 Obstructive sleep apnea (adult) (pediatric); G47.00 Insomnia, unspecified | CPT/HCPCS: 99213 ==

== ENCOUNTER → 2021-03-17 07:37 | Outpatient (BNVA) | payer MEDICARE, OTHER, SELFPAY | PROVIDERS: PCP Internal Medicine; Visit Provider Psychiatry & Neurology Psychiatry | DX: F32.5 Major depressive disorder, single episode, in full remission (principal); F41.1 Generalized anxiety disorder; G47.00 Insomnia, unspecified; G47.33 Obstructive sleep apnea (adult) (pediatric) | CPT/HCPCS: 99213 ==

== ENCOUNTER → 2021-06-16 07:38 | Outpatient (BNVA) | payer MEDICARE, OTHER, SELFPAY | PROVIDERS: PCP Internal Medicine; Visit Provider Psychiatry & Neurology Psychiatry | DX: F32.5 Major depressive disorder, single episode, in full remission (principal); F41.1 Generalized anxiety disorder; G47.33 Obstructive sleep apnea (adult) (pediatric); G47.00 Insomnia, unspecified | CPT/HCPCS: 99214 ==

== ENCOUNTER → 2021-07-07 07:50 | Outpatient (BNVA) | payer MEDICARE, OTHER, SELFPAY | PROVIDERS: PCP Internal Medicine; Visit Provider Psychiatry & Neurology Psychiatry | DX: F33.0 Major depressive disorder, recurrent, mild (principal); F41.1 Generalized anxiety disorder; G47.33 Obstructive sleep apnea (adult) (pediatric); G47.00 Insomnia, unspecified; E11.65 Type 2 diabetes mellitus with hyperglycemia | CPT/HCPCS: 99214 ==

== ENCOUNTER → 2021-07-28 07:38 | Outpatient (BNVA) | payer MEDICARE, OTHER, SELFPAY | PROVIDERS: PCP Internal Medicine; Visit Provider Psychiatry & Neurology Psychiatry | DX: F33.0 Major depressive disorder, recurrent, mild (principal); F41.1 Generalized anxiety disorder; G47.00 Insomnia, unspecified; G47.33 Obstructive sleep apnea (adult) (pediatric) | CPT/HCPCS: 99214 ==

== ENCOUNTER → 2021-08-17 13:53 | Outpatient (BNVA) | payer MEDICARE, OTHER, SELFPAY | PROVIDERS: PCP Internal Medicine; Visit Provider Internal Medicine Cardiovascular Disease | DX: I25.10 Atherosclerotic heart disease of native coronary artery without angina pectoris (principal); I10 Essential (primary) hypertension; E11.65 Type 2 diabetes mellitus with hyperglycemia; I25.5 Ischemic cardiomyopathy; E03.9 Hypothyroidism, unspecified; G47.33 Obstructive sleep apnea (adult) (pediatric) | CPT/HCPCS: 99214 ==

== ENCOUNTER → 2021-09-01 08:06 | Outpatient (BNVA) | payer MEDICARE, OTHER, SELFPAY | PROVIDERS: PCP Internal Medicine; Visit Provider Psychiatry & Neurology Psychiatry | DX: F31.81 Bipolar II disorder (principal); F41.1 Generalized anxiety disorder; G47.33 Obstructive sleep apnea (adult) (pediatric) | CPT/HCPCS: 99215 ==

== ENCOUNTER → 2021-09-08 10:09 | Outpatient (BNVA) | payer MEDICARE, OTHER, SELFPAY | PROVIDERS: PCP Internal Medicine; Visit Provider Psychiatry & Neurology Psychiatry | DX: F31.81 Bipolar II disorder (principal); F41.1 Generalized anxiety disorder; G47.33 Obstructive sleep apnea (adult) (pediatric) | CPT/HCPCS: 99214 ==

== ENCOUNTER → 2021-10-05 07:44 | Outpatient (BNVA) | payer MEDICARE, OTHER, SELFPAY | PROVIDERS: PCP Internal Medicine; Visit Provider Psychiatry & Neurology Psychiatry | DX: F31.81 Bipolar II disorder (principal); F41.1 Generalized anxiety disorder; G47.33 Obstructive sleep apnea (adult) (pediatric) | CPT/HCPCS: 99213 ==

== ENCOUNTER → 2022-02-15 14:04 | Outpatient (BNVA) | payer MEDICARE, OTHER, SELFPAY | PROVIDERS: PCP Internal Medicine; Visit Provider Nurse Practitioner Family | DX: I25.10 Atherosclerotic heart disease of native coronary artery without angina pectoris (principal); I10 Essential (primary) hypertension | CPT/HCPCS: 99213 ==

== ENCOUNTER → 2022-07-18 13:46 | Outpatient (BNVA) | payer MEDICARE, OTHER, SELFPAY | PROVIDERS: PCP Internal Medicine; Visit Provider Podiatrist Foot & Ankle Surgery | DX: M21.6X2 Other acquired deformities of left foot (principal); M72.2 Plantar fascial fibromatosis | CPT/HCPCS: 73630; 99204 ==

== ENCOUNTER → 2022-08-24 09:46 | Outpatient (BNVA) | payer MEDICARE, OTHER, SELFPAY | PROVIDERS: PCP Internal Medicine; Visit Provider Internal Medicine Cardiovascular Disease | DX: I25.10 Atherosclerotic heart disease of native coronary artery without angina pectoris (principal); I25.5 Ischemic cardiomyopathy; I10 Essential (primary) hypertension; E11.65 Type 2 diabetes mellitus with hyperglycemia; E78.2 Mixed hyperlipidemia; Z79.82 Long term (current) use of aspirin; Z79.84 Long term (current) use of oral hypoglycemic drugs | CPT/HCPCS: 99214 ==

== ENCOUNTER 2022-10-04 09:07 | Outpatient (CLI) | payer MEDICARE, OTHER, SELFPAY ==
--- NOTE | 2022-10-04 09:30 | USCV_ITS ---
Irina Moscoso Age: 72 Gender: F : 1950 Exam Date: 10/04/2022 10:04 Ordering Phys: Deven Toth MD ([email or web address]) Technologist: Kathy Mixon [place] [facility] [place]: CARDIOMYOPATHY BP: 130 / 70 HR: 70 Rhythm: Sinus Technical Quality: Adequate MEASUREMENTS (Male / Female) Normal Values 2D ECHO LV Diastolic Diameter PLAX 3.9 cm 4.2 - 5.9 / 3.9 - 5.3 cm LV Systolic Diameter PLAX 3.2 cm LV Chamber Size 3.7 cm IVS Diastolic Thickness 1.1 cm 0.6 - 1.0 / 0.6 - 0.9 cm IVS Systolic Thickness 0.9 cm LVPW Diastolic Thickness 1.3 cm 0.6 - 1.0 / 0.6 - 0.9 cm LVPW Systolic Thickness 1.3 cm RV Chamber Size 2.1 cm LVOT Diameter 2.0 cm LV Ejection Fraction 2D Teich 37.6 % LV Ejection Fraction MOD 2C 37.8 % LV Ejection Fraction 2C AL 38.9 % LA Diameter 3.1 cm LA Width 1.8 cm LA Height 3.6 cm RA Width 3.3 cm RA Height 3.4 cm Aorta at Sinotubular Diameter 3.4 cm IVC Diameter 1.8 cm M-MODE Aortic Annulus Diameter 3.4 cm LA Ao Ratio MM 1.1 MV E Point Septal Separation 1.2 cm DOPPLER AV Peak Velocity 123.0 cm/s LVOT Peak Velocity 77.0 cm/s AV Area Cont Eq vti 2.3 cm squared AV Area Cont Eq pk 2.0 cm squared MV Area PHT 5.0 cm squared Mitral E to A Ratio 0.7 MV E' Velocity 36.5 cm/s Mitral E to MV E' Ratio 18.3 Mitral E to LV E' Lateral Ratio 23.2 Mitral E to LV E' Septal Ratio 15.1 TR Peak Velocity 139.3 cm/s TR Peak Gradient 7.8 mmHg TR Mean Velocity 116.0 cm/s TR Mean Gradient 5.7 mmHg TR Velocity Time Integral 40.1 cm TV Peak E Velocity 46.0 cm/s Right Atrial Pressure 3.0 mmHg Pulmonary Artery Systolic Pressu 10.8 mmHg RV Acceleration Time 0.2 s RV Ejection Time 0.3 s RV AcT/ET 0.6 FINDINGS Left Ventricle Left ventricle is normal in size. LV systolic function is moderately reduced with EF of 35-40%. Mild global hypokinesis. Grade 1 diastolic dysfunction Right Ventricle Normal in size Right Atrium Normal in size Left Atrium Normal in size Mitral Valve Moderate mitral annular calcification. Aortic Valve Structurally normal aortic valve. Mild aortic regurgitation. No significant stenosis. Tricuspid Valve Mild tricuspid regurgitation. Pulmonary artery systolic pressure is normal Pulmonic Valve Normal in size Pericardium Normal Aorta Appears to be normal IVC Appears to be normal CONCLUSIONS LV systolic function is moderately reduced with EF of 35 to 40%. Grade 1 diastolic dysfunction Mild aortic regurgitation Mild tricuspid regurgitation Compared to prior echocardiogram from 2018, LV systolic function has decreased and is moderately reduced now. Nash Gutierrez MD (Electronically Signed) Final Date: 08 October 2022 14:30 S
== END 2022-10-04 09:08 | disposition home or self-care (01) ==
LOC: RAD 09:14
PROVIDERS: PCP Internal Medicine; Visit Provider Internal Medicine Cardiovascular Disease
DX: R06.09 Other forms of dyspnea (principal); I35.1 Nonrheumatic aortic (valve) insufficiency; I07.1 Rheumatic tricuspid insufficiency
CPT/HCPCS: 93306

== ENCOUNTER → 2022-10-18 09:21 | Outpatient (BNVA) | payer MEDICARE, OTHER, SELFPAY | PROVIDERS: PCP Internal Medicine; Visit Provider Nurse Practitioner Family | DX: I25.10 Atherosclerotic heart disease of native coronary artery without angina pectoris (principal); I10 Essential (primary) hypertension; I25.5 Ischemic cardiomyopathy | CPT/HCPCS: 99214 ==

== ENCOUNTER 2022-11-07 06:41 | Outpatient (CLI) | payer MEDICARE, OTHER, SELFPAY ==
[2022-11-07 07:04] VITALS: BMI 32.1
--- NOTE | 2022-11-07 07:18 | NMCV_ITS ---
AR ifeanyi perf SPECT r/s* [id number] Irina Moscoso Age: 72 Gender: F : 1950 Exam Date: 11/07/2022 07:50 Ordering Phys: Deven Toth MD ([email or web address]) Technologist: KYRA Harris Exam Location: [facility] Indications: ATHEROSCLEROTIC HEART DISEASE STRESS TEST Please see separate stress test report in [facility] for full findings IMAGE PROTOCOL Rest/Stress 1 Exercise Day Radiopharmaceutical Dose (mCi) Administration Site Administered by Rest: Tc-99m 10.6 IV KYRA Long Sestamibi Stress:Tc-99m 32.6 IV KYRA Long Sestamibi Rest: 07-Nov-2022 60 Discovery 630 Stress: 07-Nov-2022 30 Discovery 630 Radiopharmaceutical was injected at 87 % maximum heart rate. Images obtained in supine and prone position. SPECT RESULTS Technical Quality: Excellent Raw Data Analysis: Normal Image Corrections: No attenuation or motion correction applied Summed Stress Score: 27 Summed Rest Score: 25 Summed Difference Score: 3 PERFUSION FINDINGS A large area of moderate to severely decreased tracer uptake in the basal, mid and apical inferior, basal and mid inferolateral, basal and mid anterolateral, apical lateral and LV apex. Slight reversibility was noted in the anterolateral and apical regions. FUNCTIONAL RESULTS (calculated via Gated SPECT) Stress Image LV EF (%): 51 Stress EDV (mL):96 TID: 1 Stress ESV (mL):47 FUNCTIONAL FINDINGS: Segmental wall motion analysis revealing moderate diffuse hypokinesia of the septum and mild hypokinesia of the inferior wall segments IMPRESSIONS 1. Myocardial perfusion imaging revealing a large area of moderate to severely decreased persistent tracer uptake in the inferior, inferolateral, anterolateral and apical segments with a subtle areas of reversibility in the anterolateral and apical regions, suggesting extensive myocardial scarring, predominantly in the distribution of the right coronary artery and circumflex artery there is some involvement of the left and descending artery. Very small areas of reversibility suggesting possible stefanie-infarction ischemia in the distribution of the left circumflex artery/left anterior descending artery. 2. LV ejection fraction of a 51%. 3. LV wall motion abnormalities as mentioned above. 4. Near normal LV volume. No similar previous studies are available for comparison. Normal Dr Deven Toth MD FACC (Electronically Signed) Final Date: 07 November 2022 19:23 S
--- NOTE | 2022-11-07 07:18 | ECG_ITS ---
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 Interpretive Statements NAME OF STUDY: EXERCISE SESTAMIBI STRESS TEST INDICATION: Decreased EF Baseline blood pressure of 106/58 mm Hg, heart rate 79 beats per minute and oxygen saturation 94%. EKG showed sinus rhythm with anterolateral MS of indeterminate age. Non specific ST changes. ??? The patient exercised for 4 min 59 seconds on a [standard Arthur protocol]. Patient attained a maximum heart rate of 137 beats per minute( 92 % of the maximum predicted heart rate) with a blood pressure at the peak exercise of 201/91 mm Hg. The EKG at the peak exercise revealed sinus tachycardia with no ST-T wave changes. Patient did [not have any chest pain or any significant arrhythmis with the exercise.??? During the recovery phase, there were no new changes. Isolated PVC's noted in recovery. ??? Blood pressure at the end of the recovery phase was 138/79 mm Hg with a heart rate of 78 beats per minute. ??? CONCLUSION: 1. Normal EKG response to treadmill exercise. 2. No exercise-induced chest pain or cardiac arrhythmia. 3. Fair exercise tolerance, attained a maximum of 7 METs. 4. Baseline normal blood pressure with hypertensive response to exercise. 5. Perfusion scan will be documented separately. Electronically Signed On 11-12-2022 8:02:03 CDT by Shi Duncan M.D. [email or web address]
[2022-11-07 08:49] VITALS: BP 136/79; PULSE 77
== END 2022-11-07 06:42 | disposition home or self-care (01) ==
LOC: CDL 06:44
PROVIDERS: PCP Internal Medicine Cardiovascular Disease; Visit Provider Nurse Practitioner Family
DX: I50.9 Heart failure, unspecified (principal)
CPT/HCPCS: 36415; 78452; 93017; A9500

== ENCOUNTER → 2022-12-09 10:07 | Outpatient (BNVA) | payer MEDICARE, OTHER, SELFPAY | PROVIDERS: PCP Internal Medicine; Visit Provider Internal Medicine Cardiovascular Disease | DX: R07.89 Other chest pain (principal); I25.10 Atherosclerotic heart disease of native coronary artery without angina pectoris; E78.2 Mixed hyperlipidemia; E11.65 Type 2 diabetes mellitus with hyperglycemia; I10 Essential (primary) hypertension; I25.5 Ischemic cardiomyopathy; G47.33 Obstructive sleep apnea (adult) (pediatric); F41.1 Generalized anxiety disorder; Z79.84 Long term (current) use of oral hypoglycemic drugs | CPT/HCPCS: 99214 ==

== ENCOUNTER 2022-12-16 11:13 | Outpatient (CLI) | payer MEDICARE, OTHER, SELFPAY ==
[2022-12-16 11:52] LABS: Basophils % 0.3 %; Eosinophils # 0.2 10^3/uL (0.0-0.8); Eosinophils % 2.6 %; Hematocrit 39.4 % (37.0-47.0); Hemoglobin 12.8 g/dL (11.5-15.3); Lymphocytes # 1.5 10^3/uL (0.8-4.8); Lymphocytes % 24.7 %; Mean Corpuscular HGB Conc 32.5 g/dL (30.0-36.0); Mean Corpuscular Hemoglobin 29.6 pg (28.0-34.0); Mean Platelet Volume 9.5 fL (7.4-10.4); Monocytes # 0.6 10^3/uL (0.2-0.9); Neutrophils # 3.95 10^3/uL (1.8-7.7); Neutrophils % 63.2 %; Nucleated Red Blood Cells % 0 %; Platelet Count 241 10^3/cmm (130-400); Red Blood Count 4.33 10^6/uL (4.1-5.3); Red Cell Distribution Width 12.6 % (12.1-15.1); White Blood Count 6.2 10^3/uL (4.0-10.0)
[2022-12-16 12:03] LABS: INR 0.88 (0.83-1.21); Prothrombin Time (Patient) 12.2 Seconds (12.0-15.1)
[2022-12-16 12:17] LABS: Anion Gap 12.8 (5-19); Blood Urea Nitrogen 20 mg/dL (8-23); Calcium 9.9 mg/dL (8.5-10.5); Carbon Dioxide 29 mmol/L (22-29); Chloride 104 mmol/L (98-107); Glucose 138 mg/dL (65-115); NT Pro B Type Natriuretic Pept 344 pg/mL (0-125); Osmolality Calculated 297 mOsm/kg (285-295); Potassium 4.8 mmol/L (3.5-5.1); Sodium 141 mmol/L (136-145)
== END 2022-12-16 11:14 | disposition home or self-care (01) ==
LOC: LAB 11:16
PROVIDERS: PCP Internal Medicine; Visit Provider Internal Medicine Cardiovascular Disease
DX: I42.9 Cardiomyopathy, unspecified (principal); R07.89 Other chest pain
CPT/HCPCS: 36415; 80048; 83880; 85025; 85610; 86850; 86900

== ENCOUNTER 2022-12-19 08:15 | Observation (INO) | payer MEDICARE, OTHER, SELFPAY ==
[2022-12-19] VITALS (25 sets, daily range): BP systolic 123–151; BP diastolic 52–67; PULSE 51–75; RESP 11–23; TEMP 36.6; O2SAT 94–98; BMI 31.9
--- NOTE | 2022-12-19 06:00 | XACV_ITS ---
Exam Room: 2 Ht: 155 cm Wt: 77 kg BSA: 1.85 m2 Gender: Female : 1950 Any Known Allergies: Penicillins Exam Priority: Routine Procedure(s): Procedure Description: Diagnostic procedure Procedure Description: Left Heart Catheterization Procedure Description: Left ventriculography Procedure Description: Coronary Angiography Navneet CARRERO; Diagnostic Cath Status: Elective Diagnostic Findings * The left main is a medium caliber vessel with no significant stenotic lesions. * The left anterior ascending artery is a medium caliber elongated vessel which appears to wrap around the LV apex. The artery appears to be very tortuous throughout its course. The first diagonal branch was found to have moderate disease proximally. Mild diffuse intimal irregularities are noted in the mid and distal segment of the left anterior descending artery. No significant stenotic lesions were seen. * The left circumflex artery is a medium caliber vessel which appears to have mild diffuse intimal irregularities in the proximal and the mid segment. The artery appears to give off multiple obtuse marginal branches. All these branches are found to have mild diffuse intimal irregularities. No significant stenotic lesions were noted. * The right coronary artery is a medium caliber, extremely tortuous, dominant vessel with some intimal irregularities in the midsegment and in the distal branches. No significant stenotic lesions were noted. Conclusions 1. This is a 70-year-old white female with history of hypertension, type 2 diabetes, dyslipidemia presenting with generalized weakness, easy fatigability, shortness of breath and chest discomfort. She had a Myocardial perfusion imaging which revealed mostly fixed defect with very small areas of reversible defects. In view of her worsening symptoms, in order to further evaluate the coronary status, a cardiac catheterization was recommended. Patient underwent left heart catheterization with a left and right coronary angiogram and LV angiogram through the left groin. Apparently there was some difficulty in accessing through the wrist and through the right groin, in the past. The findings are as follows.. 2. Extremely tortuous coronary arteries. Mild diffuse intimal irregularities with no significant stenotic lesions. Slightly elevated LVEDP of 20 mmHg. Diffuse hypokinesia left ventricule with an ejection fraction of around 45%. 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 Diagnostic RX Recommendation: medical therapy and/or counseling LV EDP: 20 mmHg Ventriculography Ejection Fraction: 45.0 % Left Ventriculography Findings: * The LV angiogram was performed in the LAUREN projection. The LV cavity appears to be in the normal size. There was diffuse hypokinesia of the left ventricule with an ejection fraction to 45%. No filling defects are noted. LVEDP was 20 mmHg which dropped down to 16 following the LV angiogram. Pressures Phase:Rest AO : 118 / 58 ( 83 ) @ 8:27:00 AM 97 / 65 ( 81 ) @ 8:28:00 AM 96 / 69 ( 82 ) @ 8:34:00 AM 124 / 57 ( 86 ) @ 8:39:00 AM LV : 129 / -5 / 20 @ 8:38:00 AM 262 / 186 / 163 @ 8:38:00 AM 117 / -5 / 16 @ 8:39:00 AM 119 / -6 / 15 @ 8:39:00 AM Valves Phase:DefaultPhase AV : 0.0 @ 8:14:57 AM 0.0 @ 8:14:57 AM AV Mean Gradient: 0.0 @ 8:14:57 AM 0.0 @ 8:14:57 AM Clinical Evaluation EBL: 5mL-10mL Procedural Details Procedure Consent Obtained. Admit Source: Out Patient. Pre-Procedure Time Out. Identified patient by full name and date of as verbalized by the patient/guarantor. Does the consent match the physician's order: Yes. Accurate & Complete Informed Consent: Yes. Inpatient/Outpatient History & Physical on Chart: Yes. If H&P is completed, is and addenduem needed: No; If yes, is the addendum complete: N/A. Visualize and Verify Site with Patient/Guarantor: N/A. Relevant Radiology Images available: Yes. The risks, benefits, and alternatives of sedation and/or procedure were discussed by physician. The patient agrees to continue. Procedure started. Correct patient, site and procedure confirmed by cath team. PERRLA. 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 Lungs clear x 5 lobes. IV Site on Arrival: 20 gauge in the right anticubital. [facility] [place] Clinical Fraility Score: 4: Vulnerable. Manager Consumer Indications: Worsening Angina. Chest Pain Symptom Assessment: Atypical Angina. IV Fluids: 0.9% NaCl at KVO. 0 mL infused prior to greens laborer. Pre Procedural Pulses: right radial was 1+. Pre Procedural Pulses: left radial was 2+. Pre Procedural Pulses: bilateral posterior tibial was 1+. Pre Procedural Pulses: bilateral dorsalis pedis was 3+. Oxygen started at 2liters/min via nasal canula. left groin was prepped with chloroprep then draped in the usual sterile fashion. Physician notified. Baseline sample Acquired. HR: 65 BPM. Physician arrived. Physician scrubbed in. Immediate Pre-Procedure Time Out. Correct Patient: Yes; Correct Procedure: Yes; Correct Site: Yes; Correct Patient Position: Yes; Correct Supplies: Yes; Dried Flammable Prep: Yes; Blood Products Available: N/A;. Lidocaine 1% infiltrated to the left groin. Arterial access obtained with micropuncture set. A 5 uzbek JL4 catheter in over wire. Multiple views taken of left coronary artery. Catheter out. A 5 uzbek JR4 catheter in over wire. Multiple views taken of right coronary artery. Catheter out. A 5 uzbek Angled Pig catheter in over wire. EDP Sample taken: LV 129/-6,20; HR: 66 BPM; SpO2: 96%. LV gram performed in LAUREN @ 10 mL/second for a total of 30 mL. EDP Sample taken: LV 117/-6,16; HR: 67 BPM; SpO2: 97%. Pullback taken: LV 119/-7,15; AO 124/57(86); Mean: 0mmHg, Peak to Peak: 0mmHg, SEP: 7sec/min; HR: 67 BPM; SpO2: 96%. Catheter out. Physician review of cine films. Post Procedure: Pulses reassessed and unchanged. PERRLA. 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 No VTE prophylaxis required. Medication's Wasted: Heparin = 2500 units. Medication's Wasted: Other = fentanyl 50 mcg. Total IV fluids: 50 mL. A Manual Compression was successful obtaining hemostatsis at the Left Femoral artery insertion site. Post-op diagnosis: mild CAD, cardiomyopathy. Complications: none. Estimated blood loss: 5mL-10mL. Responsiveness - Normal response to verbal stimuli; alert and oriented, PERRLA. Airway - Unaffected, no intervention required; spontaneous ventilation. Circulation: W/N/L, pulses unchanged. Nausea/Vomiting: No. Procedure completed. Patient transferred by bed to ICU. Vital chart was stopped. Access Site Site: Left Femoral artery Sheath Size: 5 Fr Hemostasis Method: Manual Compression Hemostasis Success: Successful Procedure Medications Start: 7:12 AM Stop: 7:12 AM Medication: Versed Amount: 1 mg Route: I.V. Start: 7:12 AM Stop: 7:12 AM Medication: Fentanyl Amount: 50 mcg Route: I.V. Start: 7:19 AM Stop: 7:19 AM Medication: Versed Amount: 1 mg Route: I.V. Start: 7:27 AM Stop: 7:27 AM Medication: Heparin Amount: 1500 units Route: I.V. I, the attending physician, have reviewed and verified all procedure medications. Yes, all medications given per verbal order History/Risk Factors Hypertension: Yes Dyslipidemia: No Peripheral Arterial Disease (PAD): No Myocardial Infarction (PA): Yes Obesity: No Tobacco Use: Never Prior Interventions PCI: No CABG: No Valve Surgery: No Report Signatures Finalized by Dr Deven Toth MD [facility] on 12/19/2022 06:53 PM
[2022-12-19] MEDS: diphenhydrAMINE 50 mg Capsule PO (06:12)
[2022-12-19] MEDS: aspirin 325 mg Tablet PO (06:12)
[2022-12-19 06:21] LABS: Glucose Point of Care 127 mg/dL (70-110)
--- NOTE | 2022-12-19 07:07 | P.HPUD_ITS ---
Surgery/Procedure H&P Update DATE OF PROCEDURE: December 19, 2022 DATE H&P PERFORMED: 12/09/22 H&P UPDATE INFORMATION: I have reviewed H&P completed within last 30 days, I have examined patient prior to procedure and No changes to prior documentation PREOP DIAGNOSIS: ASHD PRIMARY INDICATION FOR PROCEDURE: Abnormal Myocardial perfusion imaging/atherosclerotic heart disease/cardiomyopathy PLANNED PROCEDURE: Operation Date: 12/19/22 07:00 Proposed Procedures p [facility] w w/o [id number],I25.10,(Left) - Deven Toth MD PATIENT REASSESSED PRIOR TO SEDATION, WITH NO CHANGE NOTED: Yes PHYSICAL EXAM: alert, oriented x 3, clear to auscultation bilaterally and regular rate & rhythm AIRWAY EVAL/ANESTHESIA PLAN: normal airway, see other exam findings, ASA III, Monitored Anesthesia, Local Anesthesia, Risks, benefits & alternatives of sedation and/or procedure discussed and Patient agrees to continue as planned
[2022-12-19] MEDS: cyanocobalamin 1,000 mcg Tablet 1000 MCG PO (08:46)
[2022-12-19] MEDS: omega-3 fatty acids 1,000 mg Capsule 1000 MG PO (08:46)
[2022-12-19] MEDS: BuSPIRONE 10 mg Tablet 20 MG PO ×2 (08:46→17:09)
[2022-12-19] MEDS: cholecalciferol (vitamin D3) 1,000 unit Tablet 2000 UNIT PO (08:46)
[2022-12-19] MEDS: atorvastatin 40 mg Tablet PO (08:46)
[2022-12-19] MEDS: losartan 50 mg Tablet 25 MG PO (08:47)
[2022-12-19] MEDS: levothyroxine 50 mcg Tablet PO (08:47)
[2022-12-19] MEDS: sertraline 100 mg Tablet 150 MG PO (08:48)
[2022-12-19] MEDS: sodium chloride 0.9% 1,000 ML 75 ML IV (08:48)
== END 2022-12-19 17:55 | disposition home or self-care (01) ==
LOC: ICU 08:16
PROVIDERS: Admitting Provider Internal Medicine Cardiovascular Disease; PCP Internal Medicine; Visit Provider Internal Medicine Cardiovascular Disease
DX: I25.10 Atherosclerotic heart disease of native coronary artery without angina pectoris (principal); I25.5 Ischemic cardiomyopathy; R07.89 Other chest pain; E78.2 Mixed hyperlipidemia; E11.65 Type 2 diabetes mellitus with hyperglycemia; I10 Essential (primary) hypertension; E03.9 Hypothyroidism, unspecified; G47.33 Obstructive sleep apnea (adult) (pediatric); Z79.84 Long term (current) use of oral hypoglycemic drugs; Z79.82 Long term (current) use of aspirin; Z79.899 Other long term (current) drug therapy; Z88.0 Allergy status to penicillin; Z88.2 Allergy status to sulfonamides; Z82.49 Family history of ischemic heart disease and other diseases of the circulatory system
CPT/HCPCS: 36415; 36416; 82962; 93458; 96361; 96365; 96367; 99152; 99153; C1769; C1887; C1894; G0378; J1644; J2250; J3010; J3490; J7030; Q0163; Q9967

== ENCOUNTER → 2022-12-26 09:17 | Outpatient (BNVA) | payer MEDICARE, OTHER, SELFPAY | PROVIDERS: PCP Internal Medicine; Visit Provider Nurse Practitioner Family | DX: I25.10 Atherosclerotic heart disease of native coronary artery without angina pectoris (principal); I10 Essential (primary) hypertension | CPT/HCPCS: 36415; 80048; 99214 ==

== ENCOUNTER 2022-12-26 09:53 | Outpatient (CLI) | payer MEDICARE, OTHER, SELFPAY | END 2022-12-26 09:54 | disposition home or self-care (01) | LOC: LAB 09:56 | PROVIDERS: PCP Internal Medicine; Visit Provider Nurse Practitioner Family | DX: I25.10 Atherosclerotic heart disease of native coronary artery without angina pectoris (principal) | CPT/HCPCS: 36415; 80048 ==

== ENCOUNTER → 2023-03-15 09:32 | Outpatient (BNVA) | payer MEDICARE, OTHER, SELFPAY | PROVIDERS: PCP Internal Medicine; Visit Provider Internal Medicine Cardiovascular Disease | DX: I25.5 Ischemic cardiomyopathy (principal); I11.0 Hypertensive heart disease with heart failure; I50.20 Unspecified systolic (congestive) heart failure; I25.10 Atherosclerotic heart disease of native coronary artery without angina pectoris; E11.65 Type 2 diabetes mellitus with hyperglycemia; E78.2 Mixed hyperlipidemia; Z79.84 Long term (current) use of oral hypoglycemic drugs | CPT/HCPCS: 99214 ==

== ENCOUNTER 2023-03-16 10:28 | Outpatient (CLI) | payer MEDICARE, OTHER, SELFPAY ==
[2023-03-16 11:22] LABS: Blood Urea Nitrogen 19 mg/dL (8-23); Carbon Dioxide 23 mmol/L (22-29); Chloride 107 mmol/L (98-107); Glucose 162 mg/dL (65-115); NT Pro B Type Natriuretic Pept 307 pg/mL (0-125); Osmolality Calculated 298 mOsm/kg (285-295); Sodium 141 mmol/L (136-145)
== END 2023-03-16 10:29 | disposition home or self-care (01) ==
PROVIDERS: PCP Internal Medicine; Visit Provider Internal Medicine Cardiovascular Disease
DX: R06.02 Shortness of breath (principal); I10 Essential (primary) hypertension
CPT/HCPCS: 36415; 80048; 83880

== ENCOUNTER → 2023-09-19 15:13 | Outpatient (BNVA) | payer MEDICARE, OTHER, SELFPAY | PROVIDERS: PCP Internal Medicine; Visit Provider Internal Medicine Cardiovascular Disease | DX: I25.5 Ischemic cardiomyopathy (principal); I25.10 Atherosclerotic heart disease of native coronary artery without angina pectoris; I11.0 Hypertensive heart disease with heart failure; I50.20 Unspecified systolic (congestive) heart failure; E78.2 Mixed hyperlipidemia | CPT/HCPCS: 99214 ==

== ENCOUNTER 2024-04-03 13:56 | Outpatient (CLI) | payer MEDICARE, OTHER, SELFPAY ==
--- NOTE | 2024-04-03 14:02 | MM_ITS ---
WS: [id number] BILATERAL 3D TOMOSYNTHESIS DIGITAL SCREENING MAMMOGRAPHY WITH CAD CLINICAL INFORMATION: SCREENING HISTORY: Screening mammogram. No current complaints. COMPARISON: 2020 TECHNIQUE: Bilateral CC and MLO views. FINDINGS: Scattered fibroglandular densities bilaterally. No suspicious focal mass, asymmetry, calcifications, or architectural distortion. No evidence of malignancy. Vascular calcification. A few incidental punc el calcifications. MM/MM scr tomosynthesis [id number] IMPRESSION: DENSITY: There are scattered areas of fibroglandular density. BI-RADS: 2 - Benign. FOLLOW UP: 1 Year Follow-up Recommend return to annual screening mammography.
== END 2024-04-03 13:57 | disposition home or self-care (01) ==
LOC: RAD 13:57
PROVIDERS: PCP Internal Medicine; Visit Provider Internal Medicine
DX: Z12.31 Encounter for screening mammogram for malignant neoplasm of breast (principal); R92.323 Mammographic fibroglandular density, bilateral breasts; R92.1 Mammographic calcification found on diagnostic imaging of breast
CPT/HCPCS: 77063; 77067

== ENCOUNTER → 2024-09-17 14:04 | Outpatient (BNVA) | payer MEDICARE, OTHER, SELFPAY | PROVIDERS: PCP Internal Medicine; Visit Provider Internal Medicine Cardiovascular Disease | DX: I25.10 Atherosclerotic heart disease of native coronary artery without angina pectoris (principal); I25.5 Ischemic cardiomyopathy; I10 Essential (primary) hypertension; E78.2 Mixed hyperlipidemia; Z79.82 Long term (current) use of aspirin | CPT/HCPCS: 99214 ==

== ENCOUNTER 2024-11-07 05:59 | Outpatient (CLI) | payer MEDICARE, OTHER, SELFPAY ==
--- NOTE | 2024-11-07 06:15 | USCV_ITS ---
Irina Moscoso Age: 74 Gender: F : 1950 Exam Date: 11/07/2024 06:17 Ordering Phys: Deven Toth MD ([email or web address]) Technologist: Exam Location: [facility] [place] Indication: ef BP: 110 / 65 HR: Rhythm: Sinus Technical Quality: Adequate MEASUREMENTS (Male / Female) Normal Values 2D ECHO LVOT Diameter 2.3 cm LV Ejection Fraction MOD 4C 34.2 % LV Ejection Fraction MOD 2C 60.7 % LV Ejection Fraction 2C AL 60.3 % LA Diameter 3.6 cm RA Systolic Volume 4C AL 34.2 ml RA Systolic Volume 4C MOD 33.6 ml Aorta at Sinotubular Diameter 3.0 cm IVC Diameter 1.7 cm M-MODE LA Ao Ratio MM 1.0 AV Cusp Separation MM 2.3 cm FINDINGS Left Ventricle Normal left ventricular size with a borderline ejection fraction of 50 to 55%.abnormal septal motion consistent with conduction abnormality. Mild left ventricular hypertrophy. Right Ventricle Possibly normal size ejection fraction Right Atrium Appears to be of normal size Left Atrium Appears to be of normal size Mitral Valve Minimally thickened mitral valve Aortic Valve No gross abnormalities noted Tricuspid Valve No gross abnormalities noted Pulmonic Valve Pulmonic valve not well visualized. Pericardium No pericardial effusion. Aorta Normal aortic annulus size. IVC Normal inferior vena cava. CONCLUSIONS Normal left ventricular size with a borderline ejection fraction of 50 to 55%.abnormal septal motion consistent with conduction abnormality. Mild left ventricular hypertrophy. Minimally thickened mitral valve. There is no pericardial effusion. There are no intracardiac masses. Compared to study from 10/04/2022, there is significant improvement in the LV ejection fraction from 35 -40% to 50-55% Dr Deven Toth MD FAC (Electronically Signed) Final Date: 10 November 2024 13:10 S
== END 2024-11-07 06:00 | disposition home or self-care (01) ==
LOC: RAD 06:00
PROVIDERS: Visit Provider Internal Medicine Cardiovascular Disease
DX: I51.7 Cardiomegaly (principal); R07.89 Other chest pain; R06.02 Shortness of breath
CPT/HCPCS: 93308